=== PATIENT | female | born 1975 | race Caucasian/White ===

== ENCOUNTER 2019-09-30 21:39 | Emergency (ER) | payer SELFPAY ==
[2019-09-30 21:48] VITALS: BP 133/73; PULSE 92; RESP 18; TEMP 37.1; O2SAT 94; BMI 38.4
--- NOTE | 2019-09-30 22:27 | ED_ITS ---
Entered by Pinky Miller, acting as scribe for Jake Martino MD Sep 30, 2019 21:39 HPI - Extremity Problem General: Chief complaint: Extremity Injury, Lower Stated complaint: ROLLED ANKLE Time Seen by Provider: 09/30/19 21:57 Source: patient History of Present Illness: HPI Narrative: 44 y/o female presents to the ED with complaint of right ankle pain. Pt states she is currently going through rehab at [facility]. She twisted her ankle this evening while she was trying to make a phone call. Complaint: extremity pain Onset (ago): hour(s) Pain Consistency: constant Location: right and lower extremity Quality: aching Associated symptoms: Deny chest pain, fever(s) or rash Review of Systems Const: Denies: fever, chills, body aches or change in appetite Eyes: Denies: blurry vision or eye discomfort ENMT: Denies: throat pain or dental pain Card: Denies: chest pain Resp: Denies: shortness of breath GI: Denies: abdominal pain, nausea, vomiting or diarrhea : Denies: painful urination Musc: Reports: extremity pain; Denies: neck pain or back pain Skin/Breast: Denies: rash Neuro: Denies: headache Psych: Denies: depression Norman/Lymph: Denies: easy bruising All/Imm: Denies: hives PFSH ED 2 PFSH: Statuses (acute, chronic, etc) shown below reflect problem list status as previously entered and may not be historically accurate Social History Smoking and tobacco status: current every day smoker Physical Exam Const: COMMON NORMALS: no apparent distress and oriented x3 GENERAL APPEARANCE: cooperative NUTRITIONAL APPEARANCE: obese HENMT: COMMON NORMALS: normocephalic and head/scalp atraumatic HEAD & SCALP: normocephalic and atraumatic Eye: COMMON NORMALS: PERRL and EOMs intact bilaterally PUPIL: Yes PERRL Neck/C-Spine: COMMON NORMALS: full ROM and supple Chest: COMMONS NORMALS: inspection of chest normal and palpation of chest normal Resp: COMMON NORMALS: normal respiratory effort, no retractions, no use of accessory muscles and clear to auscultation bilaterally AUSCULTATION: clear to auscultation bilaterally Cardio: COMMON NORMALS: regular rate, regular rhythm and no murmurs RATE: regular rate RHYTHM: regular rhythm GI: COMMON NORMALS: normal to inspection, nondistended, normoactive bowel sounds, soft to palpation, non-tender and no masses PALPATION: Yes soft Extremity: RIGHT LOWER EXTREMITY: Yes ankle joint Neuro: COMMON NORMALS: oriented x3, moves all extremities and no focal motor deficits Psych: COMMON NORMALS: mental status grossly normal, thought process normal and cooperative THOUGHT PROCESS: normal thought process Skin: COMMON NORMALS: no rashes or lesions noted and no wounds GENERAL SKIN EXAM: no rashes or lesions noted Course Vital Signs: Vital signs: Vital Signs Temperature 98.7 F 09/30/19 21:48 Pulse Rate 66 09/30/19 22:51 Respiratory Rate 17 09/30/19 22:51 Blood Pressure 112/63 09/30/19 22:51 Pulse Oximetry 96 09/30/19 22:51 MDM - Extremity (Nontraumatic) MDM Narrative: Medical decision making narrative: Patient presents here with ankle sprain. Patient's x-ray here shows no signs of fracture. Patient is able to ambulate. Patient is stable for discharge and is to follow-up with primary care doctor in 3 to 4 days and return if worsening. Imaging Data^: xr right ankle: Attestation: I personally reviewed and interpreted this imaging study as follows: My impression: no acute abnormality Discharge Plan Discharge Patient Disposition: Home, Self-Care Clinical Impression: Ankle sprain and strain Condition: Stable Prescriptions: New EC-Naprosyn 500 mg tablet,delayed release (DR/EC) 500 mg PO BID PRN (Reason: pain) Qty: 20 RF: 0 No Action clonidine 0.1 mg/24 hr Patch Weekly 0.1 mg topical PRN PRN (Reason: Anxiety) RF: 0 naltrexone 50 mg Tablet 50 mg PO BID RF: 0 venlafaxine 37.5 mg Tablet 37.5 mg PO DAILY RF: 0 mirtazapine 7.5 mg Tablet 7.5 mg PO DAILY RF: 0 omeprazole 20 mg Tablet,Delayed Release (Dr/Ec) 20 mg PO DAILY RF: 0 Discharge Orders: Discharge Order (Routine); Ordered 09/30/19 Ordered By: Jake Martino Discharge Diet: Advance as tolerated Discharge Activity: Resume usual activity Patient Instructions: Ankle Sprain (ED) Discharge Date/Time: 09/30/19 22:52 Coding Level of Care Code ED Bird Trapper for Chg Fwd Exam Problem Focused The documentation recorded by the darlineibPaul cruz Ashley, accurately reflects the service I personally performed and the decisions made by me, Jake Martino MD Sep 30, 2019 21:39
--- NOTE | 2019-09-30 22:28 | XR_ITS ---
WS: [id number] RIGHT ANKLE: 3 VIEW(S) TECHNIQUE: AP, oblique(s) and lateral. HISTORY: injury COMPARISON: None available. Normal anatomic alignment with no fracture or dislocation. No joint effusion or widening of the ankle mortise. No significant degenerative changes at the joint spaces. No soft tissue abnormality. Small calcaneal spur. XR/XR ankle RT min 3V* [id number] IMPRESSION: Negative RIGHT ankle for fracture.
[2019-09-30] MEDS: naproxen 500 mg Tablet PO (22:44)
[2019-09-30 22:51] VITALS: BP 112/63; PULSE 66; RESP 17; O2SAT 96
== END 2019-09-30 22:52 | disposition home or self-care (01) ==
PROVIDERS: Emergency Provider Emergency Medicine
DX: S93.401A Sprain of unspecified ligament of right ankle, initial encounter (principal); S96.911A Strain of unspecified muscle and tendon at ankle and foot level, right foot, initial encounter; F17.200 Nicotine dependence, unspecified, uncomplicated; X50.1XXA Overexertion from prolonged static or awkward postures, initial encounter
CPT/HCPCS: 73610; 99281; 99283